=== PATIENT | male | born 1985 | race Caucasian/White ===

== ENCOUNTER 2017-01-01 14:29 | Emergency (ER) | payer OTHER ==
[~2017-01-01] VITALS: Ht 160 cm; Wt 66.0 kg
[~2017-01-01 14:29] MED LIST: BACLOFEN20 MG PO; COLACE100 MG PO; DIAZEPAM5 MG PO; KEFLEX500 MG PO; PERCOCET 5/31 TABLET PO; SENOKOT,SENN1 TABLET PO; VESICARE5 MG PO; ZOFRAN4 MG PO
[2017-01-01 15:44] LABS: ADD MIUA? YES; BILIRUBIN NEGATIVE; BLOOD SMALL; COLOR YELLOW ((YELLOW)); GLUCOSE (STRIP) NEGATIVE; KETONES NEGATIVE; LEUKOCYTES LARGE; NITRITE NEGATIVE; PROTEIN (STRIP) NEGATIVE; SPECIFIC GRAVITY 1.014 (1.000-1.030); UROBILINOGEN 0.2 MG/DL (0.2-1.0)
[2017-01-01 16:23] LABS: RED BLOOD CELLS 0-5 /HPF (0-5); WHITE BLOOD CELLS 40-50 /HPF (0-5)
[2017-01-01 16:24] LABS: EPITHELIAL CELLS NONE SEEN /HPF
[2017-01-01 16:25] LABS: BACTERIA 2+ /HPF; MUCUS NONE SEEN /LPF; UCUL ADDED? YES
[2017-01-01 17:13] LABS: BASOPHIL COUNT 0.1 K/uL (0-0.1); EOSINOPHIL COUNT 0.4 K/uL (0-0.3); HEMATOCRIT 46.5 % (38.0-50.0); IMMATURE GRANULOCYTE (%) 0.5 % (0.0-0.7); IMMATURE GRANULOCYTE COUNT 0.1 K/uL; INSTRUMENT ABS NEUTROPHIL CT 8.2 K/uL; LYMPHOCYTE COUNT 2.6 K/uL (1.0-2.8); MCH 27.6 PG (29.0-34.0); MCHC 33.5 G/DL (30.0-36.0); MCV 82.3 FL (86-99); MEAN PLAT.VOLUME 9.9 uM^3 (9.0-12.4); MONOCYTE (%) 6.9 % (3-12); MONOCYTE COUNT 0.8 K/uL (0-0.8); NEUTROPHIL (%) 67.5 % (45-76); NEUTROPHIL COUNT 8.2 K/uL (1.8-6.4); PLATELET COUNT 224 K/uL (156-360); RBC DIS.WIDTH-CV 14.2 % (11.8-14.6); RBC DIS.WIDTH-SD 42.4 % (39-53); RED BLOOD COUNT 5.65 M/uL (4.00-5.50); WHITE BLOOD COUNT 12.1 K/uL (4.1-10.2)
[2017-01-01 17:26] LABS: CHLORIDE 103 mEq/L (99-109); POTASSIUM 3.8 mEq/L (3.7-5.4); SODIUM 138 mEq/L (136-147)
[2017-01-01 17:27] LABS: GLUCOSE 100 mg/dL (70-99)
[2017-01-01 17:29] LABS: ANION GAP 11 MEQ/L (2-14)
[2017-01-01 17:31] LABS: GFR ESTIMATE (CALCULATED) > 59 mL/min/
[2017-01-01 17:32] LABS: UREA NITROGEN (BUN) 17 mg/dL (9-23)
[2017-01-01] MEDS ORDERED: CIPRO500 MG PO (17:44)
[2017-01-01 17:52] VITALS: BP 114/77
== END 2017-01-01 17:56 | disposition home or self-care (01) ==
LOC: EME 14:29
PROVIDERS: Physician Assistant
DX: N39.0 Urinary tract infection, site not specified (principal); Z96.0 Presence of urogenital implants; Z87.440 Personal history of urinary (tract) infections; F17.200 Nicotine dependence, unspecified, uncomplicated
CPT/HCPCS: 80048; 81003; 83605; 85025; 87077; 87086 GA; 87186; 99281; 99284